=== PATIENT | male | born 1995 | race Caucasian/White ===

== ENCOUNTER 2023-03-19 12:44 | Emergency (ER) | payer OTHER ==
[~2023-03-19] VITALS: Ht 177.8 cm; Wt 113.4 kg
[2023-03-19 13:18] VITALS: BP 147/89; PULSE 70; RESP 14; TEMP 98.5; O2SAT 98
[2023-03-19 14:48] VITALS: BP 140/85; PULSE 70; RESP 14; TEMP 98; O2SAT 99
== END 2023-03-19 14:48 | disposition home or self-care (01) ==
LOC: MED 12:44
DX: S20.212A Contusion of left front wall of thorax, initial encounter (principal); V49.88XA Car occupant (driver) (passenger) injured in other specified transport accidents, initial encounter; Y93.89 Activity, other specified; Y92.89 Other specified places as the place of occurrence of the external cause; Y99.8 Other external cause status
CPT/HCPCS: 71101; 99283